=== PATIENT | female | born 1975 | race Caucasian/White ===

== ENCOUNTER → 2020-01-07 13:47 | Outpatient (CLI) | payer OTHER, SELFPAY ==
--- NOTE | ~2020-01-07 | MM_ITS ---
EXAMINATION: MM screening tony BI w zofia HISTORY: Screening mammogram TECHNIQUE: Craniocaudal and mediolateral oblique 3-D tomosynthesis images were obtained and synthetic 2-D images were generated. CAD analysis was submitted and interpreted. COMPARISON: Comparison to multiple prior studies sequentially, with oldest reviewed study dated 11/15. BREAST PARENCHYMAL COMPOSITION: The breasts are extremely dense, which lowers the sensitivity of mamm ography. FINDINGS: There is no evidence of suspicious mass, calcification, or architectural distortion to sugg est malignancy in either breast. There has been no suspicious interval change. IMPRESSION: 1. No mammographic evidence of malignancy. 2. Recommend routine screening mammography in one year. BI-RADS Category 1: Negative Reviewed, dictated and finalized at location A.
== END ==
PROVIDERS: PCP Family Medicine; Visit Provider Obstetrics & Gynecology Gynecology
DX: Z12.31 Encounter for screening mammogram for malignant neoplasm of breast (principal)
CPT/HCPCS: 77063; 77067

== ENCOUNTER → 2020-07-14 09:20 | Outpatient (CLI) | payer OTHER, SELFPAY ==
--- NOTE | ~2020-07-14 | MMUS_ITS ---
EXAMINATION: MM diagnostic tony RT w zofia, US breast RT complete HISTORY: Right axillary mass for 15+ years. Upper outer quadrant right breast lump for 3 weeks. TECHNIQUE: ML, MLO and cc full field and spot 3-D tomosynthesis images of the right breast were perfo rmed and synthetic 2-D images were generated. CAD analysis was submitted and interpreted. High resolu tion complete right breast ultrasound was performed. COMPARISON: 01/07/2020, 11/28/2017 bilateral digital screening mammogram examinations BREAST PARENCHYMAL COMPOSITION: The breasts are extremely dense, which lowers the sensitivity of mamm ography. FINDINGS: MAMMOGRAPHIC FINDINGS: A biopsy marker is noted on the right. There is a 2.5 mm circumscribed density in the right axilla, corresponding to the clinical complaint of palpable abnormality. This has a benign appearance, likely a small benign lymph node. There is a biopsy marker in the inner mid right breast; history of prior benign bilateral breast biop sies. Architectural distortion is suggested in the upper mid right breast (right MLO Tomosynthesis image 22 /48, right MLO Tomosynthesis image 23/51). The dense stroma of the right breast may obscure masses. Complete right breast ultrasound examination was performed. ULTRASOUND: 10:00 10 cm from nipple: Corresponding to the area of palpable mass is a circumscribed parallel hypoe choic solid lesion measuring 2.6 x 6 x 6 mm, without internal vascularity or suspicious shadowing, co nsistent with benign process. There are 2 lobular circumscribed hypoechoic solid lesions in the subareolar area of the right breast , measuring 8 x 5.7 mm and 4.5 x 9.3 mm dimension. Ultrasound-guided biopsy is recommended. The upper mid right breast was scanned and re-scanned, without any reproducible sonographic mass or shadowing noted. IMPRESSION: 1. Two subareolar solid masses 2. Ultrasound-guided biopsy of the 2 subareolar solid masses is recommended. BI-RADS category 4, suspicious findings. Dr. Valderrama telephoned the report and right breast ultrasound guided biopsy recommendations to Dr. Cayetano aparicio's voicemail on 07/14/2020 at 1105 hours. Reviewed, dictated and finalized at location A. IMPRESSION: 1. Two subareolar solid masses 2. Ultrasound-guided biopsy of the 2 subareolar solid masses is recommended. BI-RADS category 4, suspicious findings. Dr. Valderrama telephoned the report and right breast ultrasound guided biopsy recomm endations to Dr. Birmingham's voicemail on 07/14/2020 at 1105 hours.
== END ==
PROVIDERS: PCP Family Medicine; Visit Provider Obstetrics & Gynecology Gynecology
DX: N63.10 Unspecified lump in the right breast, unspecified quadrant (principal); R92.8 Other abnormal and inconclusive findings on diagnostic imaging of breast
CPT/HCPCS: 76641; 77061; 77065; G0279

== ENCOUNTER 2020-10-23 15:44 | Outpatient (CLI) | payer OTHER, SELFPAY ==
--- NOTE | ~2020-10-23 | CT_ITS ---
EXAMINATION: CT sinus wo con DATE: 10/23/2020 16:11 INDICATION: Chronic sinusitis TECHNIQUE: Computed tomography (CT) of the paranasal sinuses was performed without contrast. Iterativ e reconstruction technique was employed. Exam dose: 286.97 mGy-cm total exam DLP. COMPARISON: None FINDINGS: There is leftward bowing of the nasal septum. The nasal turbinates are moderately prominent in size, right greater than left. Intralamellar cell of left middle nasal turbinate. There is an approximately 7.4 mm mucus retention cyst in the inferomedial base of the right maxillary sinus. There is 1.3 x 3 mm soft tissue thickening at the anterior wall of the left sphenoid sinus. The paranasal sinuses otherwise are normally developed and aerated, without mucoperiosteal thickening or soft tissue mass density. The ostiomeatal units are patent bilaterally. There is focal soft tissue density of the cerebral inferior left mastoid air cells. The great majorit y of left mastoid air cells and all right mastoid air cells are clear. Middle and inner ear apparatus appear unremarkable. IMPRESSION: Leftward bowing of nasal septum Intralamellar cell of left middle nasal turbinate Small mucus retention cyst or polyp at floor of right maxillary sinus and minimal focal soft tissue t hickening of the anterior wall of the left sphenoid sinus Minimal inferior left mastoid air cell opacification Reviewed, dictated and finalized at Location A. Reviewed, dictated and finalized at location A. [facility] [employer] IMPRESSION: Leftward bowing of nasal septum Intralamellar cell of left middle nasal turbinate Small mucus retention cyst or polyp at floor of right maxillary sinus and minim al focal soft tissue thickening of the anterior wall of the left sphenoid sinus Minimal inferior left mastoid air cell opacification
== END 2020-10-23 15:45 | disposition home or self-care (01) ==
PROVIDERS: Family Provider Family Medicine; PCP Family Medicine; Visit Provider Otolaryngology
DX: J32.9 Chronic sinusitis, unspecified (principal); J34.2 Deviated nasal septum; J34.3 Hypertrophy of nasal turbinates
CPT/HCPCS: 70486

== ENCOUNTER 2023-08-16 10:00 | Emergency (ER) | payer OTHER, SELFPAY ==
[2023-08-16 10:06] VITALS: BP 147/87; PULSE 68; RESP 16; TEMP 36.6; O2SAT 98
[2023-08-16 10:20] VITALS: BP 147/87; PULSE 68; RESP 16; TEMP 36.6; O2SAT 98
--- NOTE | 2023-08-16 10:22 | ED.GENADULT ---
HPI - General Adult General Chief complaint: Upper Respiratory Infection Stated complaint: Cold Symptoms Source: patient Mode of arrival: ambulatory Limitations: no limitations History of Present Illness HPI narrative: Patient presents for evaluation of sick symptoms for the last 3 days. Symptoms include sinus congestion, sore throat and headache. No fever, chills, nausea, cough, SOB, vomiting or diarrhea. She has had close contact with several individuals who recently tested positive for strep. She does not smoke. Related Data Home Medications Medication Instructions Recorded Confirmed levonorgestrel-ethinyl estradiol 1 tablet PO DAILY 11/27/20 08/16/23 0.1 mg-20 mcg tablet solifenacin 5 mg tablet 5 mg PO DAILY 06/03/21 08/16/23 Allergies Allergy/AdvReac Type Severity Reaction Status Date / Time No Known Allergies Allergy Verified 08/16/23 10:11 Review of Systems Review of Systems: CONSTITUTIONAL: Denies fever, chills, or sweats. EYES: Denies visual changes, redness, or discharge. ENT: Reports sinus congestion and sore throat. Denies otalgia CARDIOVASCULAR: Denies chest pain, palpitations, or edema. RESPIRATORY: Denies cough or dyspnea. GASTROINTESTINAL: Denies abdominal pain, nausea, vomiting, or diarrhea. GENITOURINARY: Denies dysuria or hematuria. SKIN: Denies rash or itching. MUSCULOSKELETAL: Denies back pain, joint pain, or myalgia. NEUROLOGIC: Reports headache. Denies numbness, dizziness, or weakness. PSYCHIATRIC: Denies anxiety or depression. [facility] Past Medical History Medical History (Updated 08/16/23 @ 10:42 by ARNEL Barnhart, CAROL) Allergic asthma Eustachian tube disorder HTN (hypertension) Migraine headache Surgical History Surgical History No pertinent past surgical history Family History Family History Father Family history of premature coronary heart disease Hypertension Family history of elevated blood lipids Mother Hypertension Family history of elevated blood lipids Grandparent Family history of lung cancer Family history of malignant neoplasm of breast Social History Social History Social History: Smoking status: Never smoker Second hand tobacco smoke exposure: No Alcohol intake: current Drinks per week: 2 Substance use: never Substance use type: does not use Lack of Transportation: No Lack of Food: Never True Current Housing: I Have Housing Concerned About Future Housing: No Difficulty Paying Gas/Electric Bills: No Difficulty Paying for Meds: No Currently Unemployed: No Education: Decline to Answer Difficulty w/ Childcare or Family Care: No Living arrangements: with family Occupation/Education: occupation Gender identity (if verbalized by the patient): Female Sexual Orientation (if Verbalized by the Patient): Straight or Heterosexual Exam Narrative: GENERAL: Well-appearing, well-nourished, and in no acute distress. HEAD: Normocephalic, atraumatic. EYES: PERRLA and EOMI. ENT: Nares clear, no rhinorrhea or epistaxis. Mucous membranes moist. Oropharynx without tonsillar hypertrophy exudate or other lesions. Bilateral TMs pearly arango nonbulging NECK: Supple. No adenopathy or masses. No carotid bruits or JVD CHEST: Clear to auscultation. No respiratory distress. No wheezes rales or rhonchi HEART: Regular rate and rhythm. No murmur heard. Normal peripheral pulses. ABDOMEN: Soft, nontender, nondistended, normal active bowel sounds. EXTREMITIES: Normal range of motion. No edema. SKIN: Warm, dry, no rash. NEURO: No focal deficits. Alert and oriented x3. PSYCH: Normal mood and affect. Course Course Emergency Course: This is a 48-year-old female who presented for evaluation of sick symptoms. Strep, COVID, influenz
== END 2023-08-16 10:51 | disposition home or self-care (01) ==
PROVIDERS: Emergency Provider Nurse Practitioner; PCP Family Medicine
DX: J02.9 Acute pharyngitis, unspecified (principal); I10 Essential (primary) hypertension; Z20.822 Contact with and (suspected) exposure to COVID-19
CPT/HCPCS: 87081; 87426; 87804; 87880; 99213; C9803; G0463

== ENCOUNTER 2024-04-24 10:23 | Emergency (ER) | payer OTHER, SELFPAY ==
[2024-04-24 10:35] VITALS: BP 115/68; PULSE 63; RESP 16; TEMP 37.1; O2SAT 99
--- NOTE | 2024-04-24 10:35 | ED.GENADULT ---
HPI - General Adult General Chief complaint: Urogenital-Female Stated complaint: Uti Symptoms Time Seen by Provider: 04/24/24 10:47 Source: patient, RN notes reviewed and old records reviewed Mode of arrival: ambulatory Limitations: no limitations History of Present Illness HPI narrative: 49-year-old female to [facility] for complaint of urinary urgency, burning with urination, nausea, lower abdominal pressure for 1 week. Patient states that symptoms have become increasingly worse that she has right lower quadrant discomfort. Describes pain as similar to ovulation discomfort. Patient denies fever, vomiting, diarrhea, allergies, bowel changes, flank pain. Patient able to tolerate fluids by mouth. Respirations even and nonlabored. Patient in no acute distress. Related Data Home Medications Medication Instructions Recorded Confirmed levonorgestrel-ethinyl estradiol 1 tablet PO DAILY 11/27/20 04/24/24 0.1 mg-20 mcg tablet solifenacin 5 mg tablet 5 mg PO DAILY 06/03/21 04/24/24 Allergies Allergy/AdvReac Type Severity Reaction Status Date / Time No Known Allergies Allergy Verified 04/24/24 10:43 Review of Systems Review of Systems: All systems reviewed & are unremarkable except as noted in HPI and below Constitutional: Constitutional: Reports as per HPI, Denies body ache(s), Denies chills, Denies fatigue and Denies fever(s) Eyes: Eyes: Reports no additional eye complaints ENT: Reports system reviewed and no additional complaints, except as documented Cardiovascular: Cardiovascular: Reports no additional cardiovascular complaints, Denies chest pain and Denies dyspnea Respiratory: Respiratory: Reports no additional respiratory complaints, Denies cough and Denies dyspnea Gastrointestinal: Gastrointestinal: Reports as per HPI and Reports nausea Genitourinary: Genitourinary: Reports as per HPI, Reports nocturia, Reports dysuria, Denies flank pain, Denies urinary incontinence, Denies urinary hesitancy and Reports urinary urgency Musculoskeletal: Musculoskeletal: Reports no additional musculoskeletal complaints Neurologic: Reports system reviewed and no additional complaints, except as documented Psychiatric: Psychiatric: Reports no additional psychiatric complaints PMF Past Medical History Medical History (Updated 04/24/24 @ 11:10 by Kenya Hassan APRN) Allergic asthma Eustachian tube disorder HTN (hypertension) Migraine headache Surgical History Surgical History No pertinent past surgical history Family History Family History Father Family history of premature coronary heart disease Hypertension Family history of elevated blood lipids Mother Hypertension Family history of elevated blood lipids Grandparent Family history of lung cancer Family history of malignant neoplasm of breast Social History Social History Social History: Smoking status: Never smoker Second hand tobacco smoke exposure: No Alcohol intake: current Drinks per week: 2 Substance use: never Substance use type: does not use Lack of Transportation: No Lack of Food: Never True Current Housing: I Have Housing Concerned About Future Housing: No Difficulty Paying Gas/Electric Bills: No Difficulty Paying for Meds: No Currently Unemployed: No Education: Decline to Answer Difficulty w/ Childcare or Family Care: No Living arrangements: with family Occupation/Education: occupation Gender identity (if verbalized by the patient): Female Sexual Orientation (if Verbalized by the Patient): Straight or Heterosexual Comments At the time of my signature, I reviewed and agree with the nursing past medical, surgical, social, and family history. There is no relevant family history pertinent to the patien
[2024-04-24 10:53] LABS: EDUAAPPEAR Cloudy; EDUABILI Negative; EDUABLOOD 2+; EDUACOLOR1 Dark; EDUAGLUCOSE Negative; EDUAKETONE Negative; EDUALEUKO 2+; EDUANITRATE Positive; EDUAPROTEIN 2+; EDUASPGRAVITY 1.025; EDUAUROBILI 0.2
== END 2024-04-24 11:12 | disposition home or self-care (01) ==
PROVIDERS: Emergency Provider Nurse Practitioner Family; PCP Family Medicine
DX: N39.0 Urinary tract infection, site not specified (principal); B96.20 Unspecified Escherichia coli [E. coli] as the cause of diseases classified elsewhere; I10 Essential (primary) hypertension
CPT/HCPCS: 81003; 87077; 87086; 87088; 87186; 99213; G0463

== ENCOUNTER 2024-04-27 11:34 | Emergency (ER) | payer OTHER, SELFPAY ==
--- NOTE | ~2024-04-27 | CT_ITS ---
EXAMINATION: CT abdomen pelvis wo con DATE: 04/27/2024 12:26 INDICATION: Right flank pain. TECHNIQUE: Computed tomography (CT) of the abdomen and pelvis was performed without intravenous contr ast. Automated exposure control and iterative reconstruction technique were employed. The dose-length product was 206.58 mGy-cm. COMPARISON: None. FINDINGS: The visualized portions of the lung bases are clear without pneumonia or pleural effusion. The heart size is normal. No pericardial effusion. The liver, gallbladder, spleen, pancreas, adrenal glands, and left kidney are normal. There is severe right hydronephrosis. Right kidney is normal in s ize. There are 3 mm and 4 mm stones in right kidney. There are no dilated loops of bowel. The appendi x is normal. There are no pathologically enlarged lymph nodes. There is no free intraperitoneal fluid . There is mild thoracic and lumbar spondylosis. IMPRESSION: 1. Severe right hydronephrosis with transition point at the ureteropelvic junction. 2. Nonobstructing right kidney stones. Reviewed, dictated and finalized at location A. IMPRESSION: 1. Severe right hydronephrosis with transition point at the ureteropelvic junct ion. 2. Nonobstructing right kidney stones.
[2024-04-27 11:46] VITALS: BP 142/84; PULSE 67; RESP 18; TEMP 36.4; O2SAT 100
--- NOTE | 2024-04-27 11:54 | ED.GENADULT ---
HPI - General Adult General Chief complaint: Back Pain/Injury <Johnny Waters APRN - Last Filed: 04/27/24 11:57> Stated complaint: right flank pain <Johnny Waters APRN - Last Filed: 04/27/24 11:57> Time Seen by Provider: 04/27/24 11:55 <Johnny Waters APRN - Last Filed: 04/27/24 11:57> patient presents with right flank pain that started yesterday. patient states she started having uti symptoms on Tuesday and went to . patient was diagnosed with uti and started on Macrobid. patient states her urinary symptoms have subsided but now is having weakness and the right flank pain. patient denies hx of kidney stones or uti. no other complaints. PE: A&Ox3, BS non-labored, right CVA tenderness, abdomen soft and non-tender, patient moving all extremities <Johnny Waters APRN - Last Filed: 04/27/24 11:57> Related Data Home medications: Home Medications Medication Instructions Recorded Confirmed levonorgestrel-ethinyl estradiol 1 tablet PO DAILY 11/27/20 04/24/24 0.1 mg-20 mcg tablet solifenacin 5 mg tablet 5 mg PO DAILY 06/03/21 04/24/24 <Johnny Waters APRN - Last Filed: 04/27/24 11:57> Allergies/adverse reactions: Allergies Allergy/AdvReac Type Severity Reaction Status Date / Time No Known Allergies Allergy Verified 04/27/24 11:47 <Johnny Waters APRN - Last Filed: 04/27/24 11:57> [facility] Past Medical History Medical History: Medical History (Updated 04/27/24 @ 14:54 by Al Cardoso MD) Allergic asthma Eustachian tube disorder HTN (hypertension) Migraine headache <Johnny Waters APRN - Last Filed: 04/27/24 11:57> Surgical History Surgical History: Surgical History No pertinent past surgical history <Johnny Waters APRN - Last Filed: 04/27/24 11:57> Family History Family History: Family History Father Family history of premature coronary heart disease Hypertension Family history of elevated blood lipids Mother Hypertension Family history of elevated blood lipids Grandparent Family history of lung cancer Family history of malignant neoplasm of breast <Johnny WatersFREDDIE - Last Filed: 04/27/24 11:57> Social History Social History: Social History Social History: Smoking status: Never smoker Second hand tobacco smoke exposure: No Alcohol intake: current Drinks per week: 2 Substance use: never Substance use type: does not use Lack of Transportation: No Lack of Food: Never True Current Housing: I Have Housing Concerned About Future Housing: No Difficulty Paying Gas/Electric Bills: No Difficulty Paying for Meds: No Currently Unemployed: No Education: Decline to Answer Difficulty w/ Childcare or Family Care: No Living arrangements: with family Occupation/Education: occupation Gender identity (if verbalized by the patient): Female Sexual Orientation (if Verbalized by the Patient): Straight or Heterosexual <Johnny FREDDIE Waters - Last Filed: 04/27/24 11:57> Exam Narrative: APPEARANCE: No apparent distress. Head: atraumatic. EYES: EOMI, NOSE: Atraumatic NECK: Trachea midline RESPIRATORY: No increased rate of breathing CARDIOVASCULAR: RRR, ABDOMINAL: Non-distended soft nontender no guarding or rebound. Positive right CVA tenderness MUSCULOSKELETAl: No obvious deformities NEURO: Alert. Moving 4/4 extremities SKIN:: Warm, dry. Normal color PSYCHIATRIC: Normal affect <Al Cadroso MD - Last Filed: 04/27/24 14:55> Course Vital Signs Vital signs: Vital Signs Temperature 97.5 F L 04/27/24 11:46 Pulse Rate 67 04/27/24 11:46 Respiratory Rate 18 04/27/24 11:46 Blood Pressure 142/84 H 04/27/24 11:46 Pulse Oximetry 100 04/27/24 11:46 Temperature 97.5 F L
[2024-04-27 12:08] LABS: Basophils Percent Auto 0.2 % (0.2-1.2); Eosinophils Absolute Auto 0.1 K/mm3 (0-0.3); Eosinophils Percent Auto 1.2 % (0-4.4); Hematocrit 42.9 % (37.0-47.0); Hemoglobin 14.3 g/dL (12.0-15.0); Immature Granulocyte Absolute 0.03 K/mm3 (0.00-0.031); Immature Granulocyte Percent A 0.4 % (0-0.5); Lymphocytes Absolute Auto 1.34 K/mm3 (0.9-3.2); Lymphocytes Percent Auto 16.6 % (18.3-44.2); Mean Corpuscular HGB Conc 33.3 g/dl (32-36); Mean Corpuscular Hemoglobin 31.8 pg (26-34); Mean Corpuscular Volume 95.3 fl (80-100); Mean Platelet Volume 10.9 fl (7.4-10.4); Monocytes Absolute Auto 0.6 K/mm3 (0.1-0.6); Monocytes Percent Auto 7.9 % (2.6-8.5); Neutrophils Absolute Auto 5.9 K/mm3 (1.3-6.7); Neutrophils Percent Auto 73.7 % (45.5-73.1); Platelet Count Result 266 k/mm3 (150-375); Red Cell Distribution Width 11.7 % (11.5-14.5); White Blood Count 8.1 K/mm3 (4.5-10.0)
[2024-04-27 12:15] LABS: Alanine Aminotransferase 11 U/L (6-35); Albumin Level 4.3 g/dL (3.5-5.1); Alkaline Phosphatase 52 U/L (38-126); Anion Gap 9 mmol/L (4-12); Aspartate Amino Transferase 18 U/L (14-36); Bilirubin,Total 0.6 mg/dL (0.2-1.3); Blood Urea Nitrogen 11 mg/dL (7-17); Calcium 9.3 mg/dL (8.4-10.2); Carbon Dioxide 25 mmol/L (22-30); Chloride 100 mmol/L (98-107); Estimated CRCL calculation 61 ml/min; Estimated Glomerular Filt Rate > 60; Glucose 91 mg/dL (65-110); Sodium 134 mmol/L (137-145)
[2024-04-27 13:27] LABS: BEDSIDEPREGUCG Negative
[2024-04-27 13:43] LABS: Add Urine Microscopic? YES; Appearance Urine Clear (Clear); Bacteria Urine None Seen /hpf; Bilirubin Urine Negative (Negative); Blood Urine Trace (Negative); Color Urine Yellow (Yellow); Glucose Urine UA Negative (Negative); Ketones Urine 1+ mg/dL (Negative); Leukocyte Esterase Ur Trace LEU/UL (Negative); Nitrate Urine Negative (Negative); Non Pathogenic Casts 0-2; Protein Urine Negative (Negative); RBC Urine 0-2 /hpf (0-2); Specific Grav Ur 1.011 (1.001-1.035); Squamous Epithelial Cell Urine Occasional /hpf (Few); Urobilinogen Urine 0.2 mg/dL (<2.0); pH Urine 6.5 (5.0-9.0)
[2024-04-27] MEDS: SODIUM CHLORIDE 0.9% IV 1,000 ML 999 ML IV CONT (14:07)
[2024-04-27] MEDS: KETOROLAC 30 MG/ML VIAL (*BKC) IV PUSH (14:07)
[2024-04-27] MEDS: ACETAMINOPHEN 500 MG TABLET 1000 MG PO (15:01)
--- NOTE | 2024-04-27 15:14 | PC.NURSE ---
Patient refused oxycodone pill prior to discharge due to having to drive home.
[2024-04-27 15:20] VITALS: BP 138/72; PULSE 72; RESP 18; TEMP 36.6; O2SAT 97
[2024-04-27 16:42] LABS: Lipase 56 U/L (23-300)
== END 2024-04-27 15:22 | disposition home or self-care (01) ==
PROVIDERS: Nurse Practitioner Family; Emergency Provider Emergency Medicine; PCP Family Medicine
DX: N13.30 Unspecified hydronephrosis (principal); J45.909 Unspecified asthma, uncomplicated; I10 Essential (primary) hypertension; N20.0 Calculus of kidney
CPT/HCPCS: 36415; 74176; 80053; 81001; 81025; 83690; 83735; 85025; 87086; 96361; 96374; 99284; A9270; J1885; J7030

== ENCOUNTER 2024-05-10 12:32 | Outpatient (CLI) | payer OTHER, SELFPAY ==
--- NOTE | ~2024-05-10 | NM_ITS ---
EXAMINATION: RUBIN beaver renal scan DATE: 05/10/2024 13:37 INDICATION: Hydronephrosis TECHNIQUE: 8.0 mCi Tc-99m MAG3 was administered IV. 40 mg furosemide was administered IV immediately afterward. The patient was scanned in the supine position. A posterior abdominal radionuclide angiog yudi was obtained. A subsequent time course of static images of the kidneys, ureters, and bladder was obtained. COMPARISON: None FINDINGS: The posterior abdominal radionuclide angiogram and sequential static images show normal size and posi tion of the kidneys. There is a central photopenic defect at the right renal hilum on the angiographi c images consistent with hydronephrosis and dilated renal pelvis and collecting system as seen on the prior CT and which fills in with activity on the more delayed images. Peak renal parenchymal uptake was 2.4 min in left kidney and 7.4 min in right kidney (normal peak 3-5 minutes). The relative early renal uptake was 47% on the left and 53% on the right (<40% is abnormal). No abnormalities of the u reters or bladder are seen. T1/2 for clearance of activity from the left kidney and proximal collecting system was 6 minutes. T1/2 for clearance of activity from the right kidney and proximal collecting system was >30 minutes. Notes on interpretation: T1/2 <10 minutes is normal, 10-15 minutes is low grade obstruction of questi onable clinical significance, 15-20 minutes is partial obstruction that is likely clinically signific ant, >20 minutes is high grade obstruction. Note that false positives may be seen with supine positio lori, dehydration, severely dilated nonobstructed kidney, atonic collecting system, poor renal functi on, and chronic furosemide use. IMPRESSION: 1. Symmetric kidney function. 2. Right hydronephrosis with significantly delayed activity clearance from the right kidney consiste nt with high-grade obstruction. Reviewed, dictated and finalized at location A. IMPRESSION: 1. Symmetric kidney function. 2. Right hydronephrosis with significantly delayed activity clearance from the right kidney consistent with high-grade obstruction.
== END 2024-05-10 12:33 | disposition home or self-care (01) ==
PROVIDERS: PCP Family Medicine; Visit Provider Physician Assistant
DX: N13.30 Unspecified hydronephrosis (principal)
CPT/HCPCS: 78708; A9562; J1940

== ENCOUNTER 2024-05-18 14:27 | Outpatient (CLI) | payer OTHER, SELFPAY ==
--- NOTE | 2024-05-18 14:32 | ECG_ITS ---
Test Date: 2024-05-18 14:48:46 Measurements Intervals [place] Rate: 60 P: 59 [place]: 164 QRS: 56 QRSD: 91 T: 60 QT: 405 QTc: 405 Interpretive Statements SINUS RHYTHM No previous ECG available for comparison Electronically Signed On 05-19-2024 10:32:59 CDT by Stephanie Floyd M.D.
== END 2024-05-18 14:28 | disposition home or self-care (01) ==
PROVIDERS: PCP Family Medicine; Visit Provider Urology
DX: I10 Essential (primary) hypertension (principal); Z01.818 Encounter for other preprocedural examination
CPT/HCPCS: 93005

== ENCOUNTER 2024-05-24 01:45 | Day surgery (SDC) | payer OTHER, SELFPAY ==
[2024-05-17 14:23] VITALS: BMI 25.8
--- NOTE | 2024-05-17 14:29 | PC.NURSE ---
Report to the Outpatient Waiting Room, entrance under the green pavilion located off [facility], at time _1200_ on date _[id number]_. Planned Procedure Time: _2pm_.? Time changes happen often and if your time is changed the preop area will call you the afternoon before. - You and your visitor will be asked to self-screen and do not enter if you have any COVID symptoms. Please call surgeon if you need to reschedule. - A mask is optional within the hospital at this time. Patients may have clear liquids (water, carbonated beverages, clear teas, apple juice) until 3 hours prior to surgery with a maximum of 20 ounces. - No food from midnight until time of surgery and no smoking Take only the following medications with a SIP of water on the morning of surgery: ___BC pill DO NOT STOP ANY OF YOUR OTHER PRESCRIPTION MEDICATIONS PRIOR TO SURGERY EXCEPT THE FOLLOWING Medications to discontinue per physician All vitamins Date to take last whvh___[id number] Please no make-up, nail tuvaluan, hairspray, perfume, deodorant, or body powder the day of surgery.? No jewelry (including any body piercings) or valuables the day of surgery, leave them at home.? Please take a shower or bath the night before, or the morning of, surgery with an antibacterial soap.? Wear comfortable, loose fitting clothing.? - Jewelry must be removed prior to entering the operating room.? Rings and piercings that are not removed may be cut off. - The hospital will not accept responsibility for valuables.? - Please leave all valuables, including medications, at home the day of surgery. If you are going home after surgery, a licensed [place] driver must drive you home.? - NO public transportation without another adult if you receive anesthesia. - We recommend that an adult stay with you for 24 hours following discharge. - We also recommend that you do not drive, make important decision, drink alcoholic beverages, or take any drugs that were not prescribed by your health care provider for at least 24 hours after your discharge time. Follow any additional instructions given to you from your surgeon. Telephone instructions given to __Keren__and asked if any additional questions and then verbalized understanding. Patient advised to call surgeon office or pre surgery nurse liaison [phone] if any additional questions.
--- NOTE | ~2024-05-24 | XR_ITS ---
EXAMINATION: XR retrograde pyelogram RT DATE: 05/24/2024 13:28 INDICATION: Right hydronephrosis. TECHNIQUE: 161 intraoperative fluoroscopic views of the abdomen and pelvis were obtained. I was not p resent. Fluoroscopy exposure time was 81 seconds. COMPARISON: CT abdomen and pelvis 05/25/2024 FINDINGS: The right-sided retropyelogram demonstrates severe hydronephrosis with transition point at the ureteropelvic junction. IMPRESSION: 1. Severe right hydronephrosis with transition point at the ureteropelvic junction. Reviewed, dictated and finalized at location A. IMPRESSION: 1. Severe right hydronephrosis with transition point at the ureteropelvic junct ion.
--- NOTE | 2024-05-24 07:45 | WPDHPUPDATE1 ---
History and Physical Update Update Date/Time: 05/24/24 07:45 History and Physical has been reviewed, including an updated exam of the patient. There are NO changes in the patient's condition. Risks, benefits, and alternatives have been discussed and questions answered. Patient agrees to proceed with procedure.
--- NOTE | 2024-05-24 08:20 | WPDANESEPPF ---
Anes - Initial Pre Proc Eval Procedure: Operation Date: 05/24/24 12:45 Proposed Procedures p Cystoscopy, Right Ureteroscopy, Right Retrograde Pyelogram - Linus Fulton MD Date/Time: 05/24/24 08:20 Surgeon: Linus Fulton MD Pre Op Diagnosis: Hydronephrosis Right Side Patient Data Age: 49 Gender: F Height: 1.68 m Weight: 72.7 kg Allergies Allergy/AdvReac Type Severity Reaction Status Date / Time No Known Allergies Allergy Verified 05/18/24 15:07 Home Medications Medication Instructions Recorded Confirmed Type levonorgestrel-ethinyl estradiol 1 tablet PO DAILY 11/27/20 05/18/24 History 0.1 mg-20 mcg tablet solifenacin 5 mg tablet 5 mg PO DAILY 06/03/21 05/18/24 History budesonide-formoterol HFA 160 2 puff inhalation Q12H #10.2 grams 05/27/23 05/18/24 Rx mcg-4.5 mcg/actuation aerosol inhaler (Symbicort) albuterol sulfate 90 mcg/actuation See Rx Instructions .Route 03/07/24 05/18/24 Rx aerosol inhaler .COMPLEX #8.5 grams acetaminophen 500 mg tablet 1,000 mg PO TID PRN Pain 05/17/24 05/18/24 History cholecalciferol (vitamin D3) 25 25 mcg PO DAILY 05/17/24 05/18/24 History mcg (1,000 unit) capsule (Vitamin D3) cyanocobalamin (vitamin B-12) 1,000 mcg PO DAILY 05/17/24 05/18/24 History 1,000 mcg tablet (Vitamin B-12) fexofenadine 180 mg tablet 180 mg PO DAILY 05/17/24 05/18/24 History hydroxyzine HCl 10 mg tablet 10 mg PO TID PRN itching #30 tabs 05/18/24 05/18/24 Rx lisinopril 10 See Rx Instructions .Route 05/18/24 05/18/24 Rx mg-hydrochlorothiazide 12.5 mg .COMPLEX #90 tabs tablet montelukast 10 mg tablet See Rx Instructions .Route 05/18/24 05/18/24 Rx .COMPLEX #90 tabs prednisone 10 mg tablet 10 mg PO DAILY #30 tabs 05/18/24 05/18/24 Rx triamcinolone acetonide 0.1 % 1 applic topical BID #30 grams 05/18/24 05/18/24 Rx topical cream Patient hx anesthesia problems: none Family hx anesthesia problems: none Results Review: All pre-operative results and documents have been reviewed as part of the pre-operative evaluation. [facility] Past Medical History Medical History (Updated 05/18/24 @ 15:54 by Jaleesa Callaway PA-C) Allergic asthma Bronchitis Eustachian tube disorder HTN (hypertension) Migraine headache Family History Family History Father Family history of premature coronary heart disease Hypertension Family history of elevated blood lipids Mother Hypertension Family history of elevated blood lipids Grandparent Family history of lung cancer Family history of malignant neoplasm of breast Social History Social History (Updated 05/18/24 @ 15:08 by Ana Robles) Social History: Smoking status: Never smoker Second hand tobacco smoke exposure: No Alcohol intake: current Drinks per week: 2 Substance use: never Substance use type: does not use Do You Feel Safe in your Home?: Yes Lack of Transportation: No Lack of Food: Never True Current Housing: I Have Housing Concerned About Future Housing: No Difficulty Paying Gas/Electric Bills: No Difficulty Paying for Meds: No Currently Unemployed: No Education: Decline to Answer Difficulty w/ Childcare or Family Care: No Living arrangements: with family Occupation/Education: occupation Gender identity (if verbalized by the patient): Female Sexual Orientation (if Verbalized by the Patient): Straight or Heterosexual Spiritual care concerns: No Anes - Eval Final PreProcedure Day of Procedure 05/24/24 08:20 Patient weight: overweight Heart: regular rate and rhythm Lungs: clear to auscultation Airway: Mallampati scale class II Neurological: alert and oriented Last oral intake: >/= 8 hours ASA classification: II Emergent: no Anesthetic plan: proceed Anesthesia type and monitoring: general LMA and standard monitoring Results Review: All pre-operative results and documents have bee
[2024-05-24 11:30] VITALS: BP 125/80; PULSE 63; RESP 18; TEMP 36.7; O2SAT 100
[2024-05-24] MEDS: LACTATED RINGERS 1,000 ML 30 ML IV CONT (11:50)
[2024-05-24] MEDS: ceFAZolin 2 GM/D5W 50 ML 2 GM/50 ML BAG IVPB (12:51)
[2024-05-24] MEDS: LIDOCAINE HCL 2% GEL UROJET 10 ML PKG MUCOUS MEM (12:59)
[2024-05-24 13:28] VITALS: BP 147/73; PULSE 116; RESP 16; O2SAT 100
--- NOTE | 2024-05-24 13:40 | W.PM.PROC2 ---
Procedure Note - Detailed Date of Procedure 05/24/24 Pre-op Diagnosis Right hydronephrosis Post-op Diagnosis Other ( Right UPJ obstruction) Procedure Performed Cystoscopy, right retrograde pyelography, right ureteroscopy Surgeon Linus Fulton MD Anesthesia General Description of Procedure Patient is brought to the op suite where she is prepped draped in routine sterile fashion while in dorsal lithotomy position after the uneventful induction of a general LMA anesthetic. Cystoscopy was undertaken with the 19 F rigid cystoscope. Bladder urine was collected for cytology. Bladder neck and urethra endoscopically normal. Bladder mucosa is normal without any mucosal abnormalities. There is no apparent intravesical foreign body neoplasm or other pathology. She has a single orthotopic ureteral orifice bilaterally. An 8 F bulb-tipped catheter was used to obtain a right retrograde pyelogram. Ureter comes to an abrupt concentric barrier he narrowed area at the ureteropelvic junction. I cannot identify any contrast traversing across the UPJ but eventually there is some contrast in a markedly dilated renal pelvis. There was no ureteral filling defects. A the distal ureter was dilated with an 8 F 10 F dilator and ureteroscopy was undertaken with a 7.5 F digital ureteral scope. At the point of marked narrowing there is barely an identifiable orifice in the ureter leading to the renal pelvis. I was just barely able to pass a 0.035 in glidewire beyond that site. Because the patient is having absolutely no pain I opted not to press the issue and place ureteral stent. There were no mucosal abnormalities worth biopsying. I simply removed the wire and will discuss possible pyeloplasty with patient. Pathology None sent Complications No immediate complications Condition Stable Disposition PACU
[2024-05-24 13:45] VITALS: BP 147/73; PULSE 90; RESP 16; O2SAT 100
[2024-05-24 14:01] VITALS: BP 122/49; PULSE 52; RESP 16; O2SAT 100
[2024-05-24 14:30] VITALS: BP 114/56; PULSE 73; RESP 16
[2024-05-24] MEDS: oxyCODONE HCL (*CRX) 5 MG TAB IR PO (14:42)
[2024-05-24 15:00] VITALS: BP 158/99; PULSE 62; RESP 16; O2SAT 100
== END 2024-05-24 15:13 | disposition home or self-care (01) ==
PROVIDERS: PCP Family Medicine; Visit Provider Urology
PROC: (CPT 52352; principal; 2024-05-24 12:45)
DX: N13.30 Unspecified hydronephrosis (principal); I10 Essential (primary) hypertension; J45.909 Unspecified asthma, uncomplicated; Z79.51 Long term (current) use of inhaled steroids
CPT/HCPCS: 52351; 74420; 88108; 93005; A9270; C1758; C1769; J0690; J2250; J2704; J3010; J7120; Q9966